=== PATIENT | male | born 2005 | race Two or more races ===

== ENCOUNTER 2025-02-25 20:01 | Emergency (ER) | payer MEDICAID, SELFPAY ==
[2025-02-25 21:37] VITALS: BP 136/76; PULSE 100; RESP 18; TEMP 36.8; O2SAT 97; BMI 23.7
--- NOTE | 2025-02-25 23:05 | PD.EDABDPN ---
ED Abdominal Pain RME/HPI General Chief Complaint: Abdominal Pain Stated complaint: RECTAL BLEEDING Time seen by provider: 02/25/25 23:02 Arrival date/time: 02/25/25 20:01 19M with history of developmental delay presents to ED with mom for 1 week of bright red blood in stool and underwear after patient had a large BM. Limitations: no limitations Related Data Previous Rx's ?Medication ?Instructions ?Recorded prednisolone 15 mg/5 mL oral 1.5 tsp PO DAILY 5 days ##0 11/29/12 solution hydrocortisone acetate 25 mg 25 mg [place] QDAY #24 ea 02/26/25 rectal suppository (Anucort-HC) Allergies Allergy/AdvReac Type Severity Reaction Status Date / Time NKA* Allergy Uncoded 11/29/12 15:52 Review of Systems Review of Systems Systems Reviewed: All systems reviewed, normal except as documented Constitutional Constitutional: Reports system reviewed and no additional complaints, except as documented, Denies fever(s) and Denies headache(s) ENT Ears, Nose, Mouth, and Throat: Denies disequilibrium and Denies headache(s) Cardiovascular Cardiovascular: Reports system reviewed and no additional complaints, except as documented, Denies chest pain and Denies dyspnea Respiratory Respiratory: Reports system reviewed and no additional complaints, except as documented, Denies cough and Denies dyspnea Gastrointestinal Gastrointestinal: Reports system reviewed and no additional complaints, except as documented, Reports as per HPI, Denies abdominal pain, Reports hematochezia, Denies nausea and Denies vomiting Neurologic Neurologic: Reports system reviewed and no additional complaints, except as documented, Denies confusion, Denies disequilibrium and Denies headache(s) Psychiatric Psychiatric: Denies confusion Past Medical History Social History SMOKING STATUS: Never smoker ED Exam General Limitations: Present no limitations General appearance: Present alert and in no apparent distress Head Head exam: Present atraumatic Eye Eye exam: Present normal appearance, PERRL and EOMI ENT ENT exam: Present normal exam, normal oropharynx and mucous membranes moist Neck Neck exam: Present normal inspection, full ROM and trachea midline Chest Chest inspection: Present normal inspection and symmetric chest wall rise Respiratory Respiratory exam: Present normal lung sounds bilaterally Cardiovascular Cardiovascular exam: Present regular rate, normal rhythm and normal heart sounds Abdominal Exam Abdominal exam: Present soft and normal bowel sounds Extremities Exam Extremities exam: Present normal inspection and full ROM Back Exam Back exam: Present normal inspection and full ROM Neurological Exam Neurological exam: Present alert, oriented X3 and CN II-XII intact Psychiatric Psychiatric exam: Present normal affect and normal mood Skin Skin exam: Present warm, dry, intact and normal color Course Quality Measures none Orders Category Date Time Status CT Screening NOW Care 02/25/25 23:54 Active Insert IV NOW Care 02/25/25 23:54 Active Occult Blood,Stool (Nursing) NOW Care 02/25/25 23:03 Active CBC Stat Lab 02/25/25 23:16 Completed CMP [Comprehensive Metabolic Panel] Stat Lab 02/25/25 23:16 Completed INR [Prothrombin Time with INR] Stat Lab 02/25/25 23:16 Completed PTT [Partial Thromboplastin Time] Stat Lab 02/25/25 23:16 Completed Vital Signs Vital signs: Vital Signs Temperature 98.3 F 02/25/25 21:37 Pulse Rate 100 02/25/25 21:37 Respiratory Rate 18 02/25/25 21:37 Blood Pressure 136/76 H 02/25/25 21:37 Pulse Oximetry (%) 97 02/25/25 21:37 Oxygen Delivery Method Room Air 02/25/25 21:37 O2 at 97% on RA and WNLs Abdominal Pain MDM MDM Narrative MDM Narrative:: 19M with history of developmental delay presents to ED with mom for 1 week of bright red blood in stool and underwear after patient had a large BM. Physical exam with financial accounting manager [employer] narcotics investigator reveals no obvious hemorrhoids or anal fissure. There is some bright red blood on finger tip. There is also red blood on pullups. Patient is afebrile, calm, and alert. Stool occult +. No anemia. Coags normal. Spoke to Dr. Oquendo, who states with normal HgB, patient needs CT to confirm proctitis or colitis in order to be admitted. If none, discharge with steroid suppository. Patient was unable to cooperate enough to get CT done. Mom states she will follow-up and try to get outpatient endoscopy since patient will need to be sedated anyway. She would rather not do conscious sedation today. Patient data External records reviewed:: None Clinical information provided by:: patient Social determinants that could affect healthcare access:: other (specify) (developmental delay) Patient has the following chronic illnesses:: developmental delay How is presenting disease/condition affected by chronic disease/condition?: exacerbated by Evaluation data The following diagnostics were reviewed and interpreted by me:: lab results Lab and/or radiology exams considered but not ordered:: ordered Interpretation Summary: above Medications / Prescriptions Medications or Prescriptions considered but not ordered:: not ordered Medication administrations:: n/a Consultations Consultation(s) initiated? (list below): Yes Diagnosis Differential diagnosis abdominal pain: abdominal pain, acute appendicitis, calculus of kidney, constipation, diverticulitis, endometriosis, gastroenteritis, pancreatitis, small bowel obstruction and other (bright red rectal bleeding) Most likely diagnosis given after review of the tests above:: bright red rectal bleeding Admission Indicated Admission indicated?: not indicated Admission Request Was there a request for admission?: No Disposition Plan Disposition Plan: Discharge Discharge Attestation Discharge Attestation: The patient and all family members were given an opportunity to ask questions and understood the discharge instructions. Discharge instructions specifically effects, indications for sooner follow up or return to the emergency department, and the expected course of current diagnosis. Patient condition: Stable Discharge Plan Plan Patient Disposition: HOME (Self Care) Discharge Disposition comment: Stable Prescriptions/Referrals Prescriptions/Med Rec: New hydrocortisone acetate [Anucort-HC] 25 mg suppository 25 mg WI QDAY Qty: 24 0RF No Action prednisolone 15 MG/5 ML syrup 1.5 tsp PO DAILY 5 Days Qty: 0 0RF Problem List Clinical Impression: Bright red rectal bleeding Patient/Caregiver Discharge Instructions Education Materials: ED Lower GI Bleeding (Stable) Additional Instructions: Please follow-up with PCP within 24-48 hours and return immediately if symptoms worsen. Can see PCP for stool culture and/or referral to GI for colonoscopy. Print Language: B[place] Stand Alone Forms: Patient Portal Info Letter KJ/PATIENCE Supervising Physician GONZALO Supervising Physician: Dr. Rivas
[2025-02-25 23:37] LABS: Basophils # (Auto) 0.0 Thou/mm3 (0.0-0.2); Basophils % (Auto) 0 % (0-2.5); Eosinophils # (Auto) 0.1 Thou/mm3 (0.0-0.5); Eosinophils % (Auto) 1 % (0-10); Hematocrit 41.0 % (41.0-53.0); Hemoglobin 13.6 g/dL (13.5-16.0); Immature Granulocytes Auto 0.03 Thou/mm3 (0.00-0.00); Lymphocytes # (Auto) 1.5 Thou/mm3 (1.0-4.8); Lymphocytes % (Auto) 13 % (10-50); Mean Corpuscular HGB Conc 33.2 g/dl (31.0-37.0); Mean Corpuscular Hemoglobin 28.0 pg (25.0-35.0); Mean Corpuscular Volume 85 fL (80-100); Monocytes # (Auto) 0.6 Thou/mm3 (0.0-0.8); Monocytes % (Auto) 6 % (0-12); Neutrophils # (Auto) 8.8 Thou/mm3 (1.8-7.7); Neutrophils % (Auto) 80 % (37-80); Nucleated Red Blood Cell # 0.00 Thou/mm3 (0.00-0.00); Nucleated Red Blood Cell % 0 /100 WBC (0); Platelet Count 187 Thou/mm3 (140-440); RDW Standard Deviation 38.9 fL (35.1-43.9); Red Blood Count 4.85 Miln/mm3 (4.50-5.90); White Blood Count 11.1 Thou/mm3 (4.5-11.0)
[2025-02-25 23:55] LABS: Alanine Aminotransferase 14 U/L (10-49); Albumin, Serum 4.7 gm/dL (3.5-5.0); Albumin/Globulin Ratio 1.7 (1.2-2.2); Alkaline Phosphatase 107 U/L (46-116); Anion Gap 12 (7-16); Aspartate Amino Transferase 11 U/L (0-34); BUN/Creatinine Ratio 13 Ratio (12-20); Bilirubin,Total 0.3 mg/dL (0.3-1.2); Blood Urea Nitrogen 8 mg/dL (9-23); Calcium 9.7 mg/dL (8.3-10.6); Calcium (Corrected) 9.7 mg/dL (8.5-10.1); Carbon Dioxide 23.6 mMol/L (20.0-31.0); Chloride 105 mMol/L (98-107); Creatinine (Component) 0.6 mg/dL (0.6-1.3); Estimated Creatinine Clearance 177.2 mL/min (>60); Globulin 2.8 gm/dL (2.3-3.5); Glucose 133 mg/dL (74-106); Osmolality,Calculated 281 (275-295); Potassium 3.5 mMol/L (3.4-5.1); Sodium 141 mMol/L (136-145); Total Protein 7.5 gm/dL (5.7-8.2); eGFR > 60 See Note
[2025-02-25 23:56] LABS: INR 1.1 (0.9-1.3); Partial Thromboplastin Time 27.6 Seconds (22.0-36.0); Prothrombin Time 11.7 Seconds (9.0-12.2)
--- NOTE | 2025-02-26 00:26 | PC.NURSE ---
pt names geri garland inside and outside ER at 12:26
--- NOTE | 2025-02-26 01:37 | PC.NURSE ---
pt name called out again no respond in lobby
[2025-02-26 01:48] VITALS: BP 132/70; PULSE 80; RESP 18; TEMP 36.8; O2SAT 96
== END 2025-02-26 01:48 | disposition home or self-care (01) ==
LOC: SERX 02-26 02:16
PROVIDERS: Physician Assistant; Emergency Provider Emergency Medicine; PCP Nurse Practitioner Pediatrics
DX: K92.1 Melena (principal)
CPT/HCPCS: 36415; 80053; 85025; 85610; 85730; 99283